=== PATIENT | male | born 1950 | race Caucasian/White ===

== ENCOUNTER 2016-09-30 21:50 | Emergency (ER) | payer OTHER, BC ==
[~2016-09-30] VITALS: Ht 180.3 cm; Wt 96.1 kg
[~2016-09-30 21:50] MED LIST: AMLODIPINE BES2.5 MG PO; AMLODIPINE BESY10 MG PO; CHLORHEXIDINE473 ML PO; DOCUSATE SODIU100 MG PO; HYDRALAZINE HCL10 MG PO; KEFLEX500 MG PO; METRONIDAZOLE500 MG PO; OXAYDO5 MG PO; TAMSULOSIN HCL0.4 MG PO
[2016-09-30 22:57] LABS: HEMATOCRIT 39.8 % (38.0-50.0); MCH 28.6 PG (29.0-34.0); MCHC 35.2 G/DL (30.0-36.0); MCV 81.4 FL (86-99); MEAN PLAT.VOLUME 9.8 uM^3 (9.0-12.4); PLATELET COUNT 245 K/uL (156-360); RBC DIS.WIDTH-CV 14.3 % (11.8-14.6); RBC DIS.WIDTH-SD 41.3 % (39-53); RED BLOOD COUNT 4.89 M/uL (4.00-5.50)
[2016-09-30 22:59] LABS: WHITE BLOOD COUNT 8.7 K/uL (4.1-10.2)
[2016-09-30 23:08] LABS: CHLORIDE 104 mEq/L (99-109); POTASSIUM 3.9 mEq/L (3.7-5.4); SODIUM 139 mEq/L (136-147)
[2016-09-30 23:10] LABS: GLUCOSE 123 mg/dL (70-99)
[2016-09-30 23:11] LABS: ANION GAP 11 MEQ/L (2-14)
[2016-09-30 23:12] LABS: TOTAL BILIRUBIN 0.9 mg/dL (0.0-1.0)
[2016-09-30 23:14] LABS: ALKALINE PHOSPHATASE 77 IU/L (3-129); GFR ESTIMATE (CALCULATED) > 59 mL/min/
[2016-09-30 23:15] LABS: DIRECT BILIRUBIN 0.3 mg/dL (0.0-0.3); UREA NITROGEN (BUN) 13 mg/dL (9-23)
[2016-09-30 23:17] LABS: LIPASE 15 U/L (1.0-51.0)
[2016-09-30 23:33] LABS: INFLUENZA A VIRAL ANTIGEN NEGATIVE; INFLUENZA B VIRAL ANTIGEN NEGATIVE
[2016-10-01 00:38] LABS: ADD MIUA? NO; BILIRUBIN NEGATIVE; BLOOD NEGATIVE; COLOR YELLOW ((YELLOW)); GLUCOSE (STRIP) NEGATIVE; KETONES 15; LEUKOCYTES NEGATIVE; NITRITE NEGATIVE; PROTEIN (STRIP) TRACE; SPECIFIC GRAVITY 1.016 (1.000-1.030); UCUL ADDED? NO; UROBILINOGEN 0.2 MG/DL (0.2-1.0)
[2016-10-01] MEDS ORDERED: ZOFRAN4 MG PO (01:09)
[2016-10-01 03:03] VITALS: BP 130/73
== END 2016-10-01 03:04 | disposition home or self-care (01) ==
LOC: EME 21:50
PROVIDERS: Emergency Medicine
DX: R11.2 Nausea with vomiting, unspecified (principal); E86.0 Dehydration; R50.9 Fever, unspecified; E87.2 Acidosis; J45.909 Unspecified asthma, uncomplicated; E78.5 Hyperlipidemia, unspecified; I10 Essential (primary) hypertension; C76.0 Malignant neoplasm of head, face and neck; Z88.5 Allergy status to narcotic agent; Z88.8 Allergy status to other drugs, medicaments and biological substances; Z88.6 Allergy status to analgesic agent
CPT/HCPCS: 71020; 80048; 80076; 81003; 83605; 83690; 85027; 87040; 87502; 99281; 99285; J1885; J2405; J7030

== ENCOUNTER 2016-10-06 03:53 | Emergency (ER) | payer OTHER, BC ==
[~2016-10-06] VITALS: Ht 180.3 cm; Wt 93.4 kg
[~2016-10-06 03:53] MED LIST changes: +ZOFRAN4 MG PO
[2016-10-06 07:57] LABS: EOSINOPHIL (%) 1.2 % (0-5); EOSINOPHIL COUNT 0.1 K/uL (0-0.3); HEMATOCRIT 39.5 % (38.0-50.0); IMMATURE GRANULOCYTE (%) 0.2 % (0.0-0.7); IMMATURE GRANULOCYTE COUNT 0.1 K/uL; LYMPHOCYTE COUNT 0.9 K/uL (1.0-2.8); MCH 28.2 PG (29.0-34.0); MCHC 34.4 G/DL (30.0-36.0); MCV 81.8 FL (86-99); MEAN PLAT.VOLUME 9.4 uM^3 (9.0-12.4); MONOCYTE (%) 9.1 % (3-12); MONOCYTE COUNT 0.5 K/uL (0-0.8); NEUTROPHIL COUNT 3.4 K/uL (1.8-6.4); PLATELET COUNT 301 K/uL (156-360); RBC DIS.WIDTH-CV 14.1 % (11.8-14.6); RBC DIS.WIDTH-SD 41.2 % (39-53); RED BLOOD COUNT 4.83 M/uL (4.00-5.50)
[2016-10-06 08:08] LABS: WHITE BLOOD COUNT 4.9 K/uL (4.1-10.2)
[2016-10-06 08:27] LABS: ANION GAP 8 MEQ/L (2-14); CHLORIDE 102 MEQ/L (99-109); POTASSIUM 3.9 MEQ/L (3.7-5.4); SAMPLE HEMOLYSIS CHECK 0; SAMPLE ICTERIC CHECK 0; SAMPLE LIPEMIA CHECK 0; SODIUM 140 MEQ/L (136-147); TOTAL BILIRUBIN 0.6 MG/DL (0.0-1.0)
[2016-10-06 08:33] LABS: ALKALINE PHOSPHATASE 62 IU/L (3-129); GFR ESTIMATE (CALCULATED) > 59 mL/min/; GLUCOSE 105 mg/dL (70-99); UREA NITROGEN (BUN) 11 mg/dL (9-23)
[2016-10-06 09:07] VITALS: BP 162/95
== END 2016-10-06 09:09 | disposition home or self-care (01) ==
LOC: EME 03:53
PROVIDERS: Physician Assistant
DX: R11.0 Nausea (principal); E86.0 Dehydration; D00.00 Carcinoma in situ of oral cavity, unspecified site; Z79.899 Other long term (current) drug therapy; J45.909 Unspecified asthma, uncomplicated; E78.5 Hyperlipidemia, unspecified; I10 Essential (primary) hypertension
CPT/HCPCS: 74020; 80053; 81003; 85025; 99281; 99284; J7120